=== PATIENT | male | born 1995 | race Hispanic/Latino ===

== ENCOUNTER 2022-01-29 13:35 | Emergency (ER) | payer OTHER ==
[2022-01-29 15:21] LABS: Hematocrit 44.5 % (39.6-49.0); MCV 87.4 fL (80-100); MPV 9.3 fL (7.6-11.3)
[2022-01-29 15:34] LABS: Albumin 3.7 g/dL (3.4-5.0); Bilirubin Total 0.3 mg/dL (0.2-1.0)
[2022-01-29] MEDS ORDERED: ONDANSETRON 4 MG/2 ML VIAL ONE (15:57)
[2022-01-29] MEDS ORDERED: NA CHLORIDE 0.9% 1,000 ML ONE (15:57)
[2022-01-29] MEDS ORDERED: MORPHINE 4 MG/ML SYR ONE (15:57)
[2022-01-29 16:07] LABS: Urine Blood Negative (Negative); Urine Glucose Negative (Negative); Urine Protein Negative (Negative); Urine Specific Gravity <=1.005 (1.005-1.030); Urine pH 6.5 (5.0-7.0)
[2022-01-29 16:14] LABS: Urine Bacteria <20 /HPF (<20); Urine Crystals Unidentified Few /HPF (None Seen); Urine RBC <5 /HPF (None Seen)
--- NOTE | 2022-01-29 16:29 | RAD REPORT ---
EXAM DESCRIPTION: CTAbdomen Pelvis W Contrast - 01/29/2022 4:23 pm CLINICAL HISTORY: Abdominal pain. upper abdomen pain COMPARISON: No comparisons TECHNIQUE: Biphasic CT imaging of the abdomen and pelvis was performed with 100 ml non-ionic IV cont rast. All CT scans are performed using dose optimization technique as appropriate and may include automated exposure control or mA/KV adjustment according to patient size. FINDINGS: The lung bases are clear. The liver, spleen, pancreas, adrenal glands and kidneys are within normal limits. No bowel obstruction, free air, free fluid or abscess. The appendix is normal. No evidence of signi ficant lymphadenopathy. No suspicious bony findings. IMPRESSION: No acute intra-abdominal or pelvic finding.
--- NOTE | 2022-01-29 16:52 | RAD REPORT ---
EXAM DESCRIPTION: US - Abdomen Exam Limited - 01/29/2022 4:40 pm CLINICAL HISTORY: epigastric pain, elevated liver enzymes COMPARISON: No comparisons FINDINGS: The gallbladder demonstrates no gallstones. No pericholecystic fluid or gallbladder wall t hickening. The common bile duct is normal measuring 2 mm. The liver demonstrates no findings of intrahepatic biliary dilatation. IMPRESSION: Unremarkable examination.
--- NOTE | 2022-01-29 17:18 | ER ---
Nurse's Notes [facility] Name: Mike Francis Age: 26 yrs Sex: Male : 1995 Arrival Date: 01/29/2022 Time: 13:36 Bed 9 Private MD: Diagnosis: Upper abdominal pain, unspecified Presentation: 01/29 14:03 Chief complaint: Patient states: yesterday I went to the ER in [place] for upper abd iw pain I have at night, they said I have inflammation of my liver, and they gave my fluids and morphine, they told m to come back to the ER if symptoms persist, now the nausea and light headedness is worse now, the pain isn;t as bad. Coronavirus screen: At this time, the client does not indicate any symptoms associated with coronavirus-19. Ebola Screen: Patient negative for fever greater than or equal to 101.5 degrees Fahrenheit, and additional compatible Ebola Virus Disease symptoms Patient denies exposure to infectious person. Patient denies travel to an Ebola-affected area in the 21 days before illness onset. No symptoms or risks identified at this time. Initial Sepsis Screen: Does the patient meet any 2 criteria? No. Patient's initial sepsis screen is negative. Does the patient have a suspected source of infection? No. Patient's initial sepsis screen is negative. Risk Assessment: Do you want to hurt yourself or someone else? Patient reports no desire to harm self or others. Onset of symptoms was January 27, 2022. 14:03 Method Of Arrival: Ambulatory iw 14:03 Acuity: ROSIBEL 3 iw Triage Assessment: 14:17 General: Appears in no apparent distress. comfortable, Behavior is calm, cooperative, ld1 appropriate for age. Pain: Denies pain. EENT: No signs and/or symptoms were reported regarding the EENT system. Neuro: Level of Consciousness is awake, alert, obeys commands, Oriented to person, place, time, situation, Reports dizziness, headache. Cardiovascular: Capillary refill < 3 seconds Patient's skin is warm and dry. Respiratory: Airway is patent Respiratory effort is even, unlabored. GI: Abdomen is round non-distended. : No signs and/or symptoms were reported regarding the genitourinary system. Derm: No signs and/or symptoms reported regarding the dermatologic system. Musculoskeletal: No signs and/or symptoms reported regarding the musculoskeletal system. Historical: - Allergies: 14:06 No Known Allergies; iw - Home Meds: 14:06 None [Active]; iw - PMHx: 14:06 sciatic nerve pain; iw - PSHx: 14:06 None; iw Vital Signs: 14:03 BP 129 / 81; Pulse 81; Resp 16; Temp 97.9; Pulse Ox 99% on R/A; Weight 90.72 kg; Height iw 5 ft. 7 in. (170.18 cm); Pain 3/10; 14:16 BP 129 / 81; Pulse 73; Resp 18; Temp 98.3(O); Pulse Ox 100% on R/A; Weight 90.72 kg; ld1 Height 5 ft. 7 in. (170.18 cm); Pain 0/10; 14:16 Body Mass Index 31.32 (90.72 kg, 170.18 cm) ld1 ED Course: 13:36 Patient arrived in ED. as 14:02 Ehsan Mccrary PA is PHCP. cp 14:02 Ehsan Fox MD is Attending Physician. cp 14:06 Triage completed. iw 14:16 Arm band placed on right wrist. ld1 15:05 Initial lab(s) drawn, by ak, sent to lab. Inserted saline lock: 20 gauge in right em1 antecubital area, using aseptic technique. Blood collected. 16:04 Sierra Manning, RN is Primary Nurse. iw 16:24 CT Abd/Pelvis - IV Contrast Only In Process Unspecified. EDMS 16:42 US Abdomen Limited In Process Unspecified. EDMS 17:18 Demario Vasquez MD is Referral Physician. cp Administered Medications: 16:04 Drug: NS 0.9% 1000 ml Route: IV; Rate: 1 bolus; Site: right antecubital; iw 16:04 Drug: morphine 4 mg Route: IVP; Infused Over: 4 mins; Site: right antecubital; iw 16:05 Drug: Zofran (Ondansetron) 4 mg Route: IVP; Site: right antecubital; iw Outcome: 17:18 Discharge ordered by . cp 18:46 Patient left the ED. iw Signatures: Dispatcher [employer] EDMS Lidia Tellez as Sierra Manning RN RN iw Basilio Tellez em1 Ehsan Mccrary PA PA cp Nelly Corbin, RN RN ld1
--- NOTE | 2022-01-29 17:18 | EDPHYS ---
Physician Documentation [facility] Name: Mike Francis Age: 26 yrs Sex: Male : 1995 Arrival Date: 01/29/2022 Time: 13:36 Bed 9 Private MD: ED Physician Ehsan Fox HPI: 01/29 15:00 This 26 yrs old Male presents to ER via Ambulatory with complaints of cp Epigastric Pain, Nausea. 15:00 The patient presents with abdominal pain in the epigastric area, in the upper abdomen. cp Onset: The symptoms/episode began/occurred last week. The symptoms radiate to chest. Associated signs and symptoms: Pertinent positives: nausea, Pertinent negatives: constipation, diarrhea, active vomiting. 15:00 The patient has been recently seen by a physician: in [place] ED, yesterday, with cp similar presenting complaints, and apparently given a diagnosis of liver inflammation, lab tests were done. Historical: - Allergies: 14:06 No Known Allergies; iw - Home Meds: 14:06 None [Active]; iw - PMHx: 14:06 sciatic nerve pain; iw - PSHx: 14:06 None; iw ROS: 15:05 Constitutional: Negative for body aches, chills, fever. cp 15:05 Eyes: Negative for injury, pain, redness, and discharge. cp 15:05 ENT: Negative for drainage from ear(s), ear pain, sore throat, difficulty swallowing, difficulty handling secretions. 15:05 Cardiovascular: Negative for edema, palpitations. 15:05 Respiratory: Negative for cough, shortness of breath, wheezing. 15:05 Abdomen/GI: Positive for abdominal pain, nausea, Negative for diarrhea, constipation, black/tarry stool, rectal bleeding, active vomiting. 15:05 Back: Negative for injury or acute deformity, pain with movement. 15:05 Neuro: Negative for altered mental status, dizziness, headache, weakness. 15:05 All other systems are negative. Exam: 15:10 Constitutional: The patient appears in no acute distress, alert, awake, non-toxic, well cp developed, well nourished, uncomfortable. 15:10 Head/Face: Normocephalic, atraumatic. cp 15:10 Eyes: Periorbital structures: appear normal, Conjunctiva: normal, no exudate, no injection, Sclera: no appreciated abnormality, Lids and lashes: appear normal, bilaterally. 15:10 ENT: External ear(s): are unremarkable, Nose: is normal, Mouth: Lips: moist, Oral mucosa: pink and intact, moist, Posterior pharynx: Airway: no evidence of obstruction, patent. 15:10 Neck: ROM/movement: is normal, is supple, without pain, no range of motions limitations. 15:10 Chest/axilla: Inspection: normal. 15:10 Cardiovascular: Rate: normal, Rhythm: regular. 15:10 Respiratory: the patient does not display signs of respiratory distress, Respirations: normal, no use of accessory muscles, no retractions, labored breathing, is not present, Breath sounds: are clear throughout, no decreased breath sounds, no stridor, no wheezing. 15:10 Abdomen/GI: Inspection: abdomen appears normal, Bowel sounds: active, all quadrants, Palpation: soft, in all quadrants, moderate abdominal tenderness, in the epigastric area, rebound tenderness, is not appreciated, voluntary guarding, is elicited in the epigastric area. 15:10 Back: CVA tenderness, is absent. 15:10 Neuro: Orientation: to person, place \T\ time. Mentation: is normal. Vital Signs: 14:03 BP 129 / 81; Pulse 81; Resp 16; Temp 97.9; Pulse Ox 99% on R/A; Weight 90.72 kg; Height iw 5 ft. 7 in. (170.18 cm); Pain 3/10; 14:16 BP 129 / 81; Pulse 73; Resp 18; Temp 98.3(O); Pulse Ox 100% on R/A; Weight 90.72 kg; ld1 Height 5 ft. 7 in. (170.18 cm); Pain 0/10; 14:16 Body Mass Index 31.32 (90.72 kg, 170.18 cm) ld1 MDM: 14:22 Patient medically screened. cp 16:00 Differential diagnosis: cholecystitis, Cholelithiasis, gastritis, pancreatitis, Peptic cp Ulcer Disease, Perf. Duodenal Ulcer, Perf. Gastric Ulcer, Pyelonephritis, Ureterolithiasis, urinary tract infection. 17:18 Data reviewed: vital signs, nurses notes, lab test result(s), radiologic studies, CT cp scan, ultrasound. 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 Response to treatment: the patient's symptoms have markedly improved after treatment, and as a result, I will discharge patient. Special discussion: Based on the patient's Hx, exam, and Dx evaluation, there is no indication for emergent surgery or inpatient Tx. It is understood by the patient/guardian that if the Sx's persist or worsen they need to return immediately for re-evaluation. 01/29 14:42 Order name: CBC with Diff; Complete Time: 15:43 cp 01/29 14:42 Order name: CMP; Complete Time: 15:43 cp 01/29 14:42 Order name: Lipase; Complete Time: 15:43 cp 01/29 14:42 Order name: Urine Microscopic Only; Complete Time: 16:57 cp 01/29 15:46 Order name: US Abdomen Limited; Complete Time: 16:57 cp 01/29 16:57 Interpretation: Report reviewed. cp 01/29 16:07 Order name: Urine Dipstick-Ancillary; Complete Time: 16:57 EDMS 01/29 14:42 Order name: IV Saline Lock; Complete Time: 15:44 cp 01/29 14:42 Order name: Labs collected and sent; Complete Time: 15:44 cp 01/29 14:42 Order name: Urine Dipstick-Ancillary (obtain specimen); Complete Time: 16:05 cp 01/29 15:46 Order name: CT Abd/Pelvis - IV Contrast Only; Complete Time: 16:57 cp 01/29 16:57 Interpretation: Report reviewed. cp 01/29 17:02 Order name: PO challenge; Complete Time: 18:11 cp Administered Medications: 16:04 Drug: NS 0.9% 1000 ml Route: IV; Rate: 1 bolus; Site: right antecubital; iw 16:04 Drug: morphine 4 mg Route: IVP; Infused Over: 4 mins; Site: right antecubital; iw 16:05 Drug: Zofran (Ondansetron) 4 mg Route: IVP; Site: right antecubital; iw Disposition Summary: 01/29/22 17:18 Discharge Ordered Location: Home cp Problem: new cp Symptoms: have improved cp Condition: Stable cp Diagnosis - Upper abdominal pain, unspecified cp Followup: cp - With: Demario Vasquez MD - When: 2 - 3 days - Reason: Recheck today's complaints Discharge Instructions: - Discharge Summary Sheet cp - Abdominal Pain, Adult cp - Gastritis, Adult cp - Form - Excuse from Work, School, or Physical Activity cp Forms: - Medication Reconciliation Form cp - Thank You Letter cp - Antibiotic Education cp - Prescription Opioid Use cp - Work release form iw Prescriptions: - Protonix 40 mg Oral Tablet - take 1 tablet by ORAL route once daily; 30 tablet; Refills: 0, Product cp Selection Permitted - Zofran 4 mg Oral Tablet - take 1 tablet by ORAL route every 12 hours As needed; 20 tablet; Refills: 0, cp Product Selection Permitted Addendum: 02/01/2022 08:01 Co-signature as Attending Physician, Ehsan Fox MD I agree with the assessment and c escobar plan of care. Signatures: Dispatcher [employer] Ehsan Browne MD MD cha Williams, Irene, RN RN iw Ehsan Mccrary, PA PA cp
[2022-01-29 18:51] VITALS: BP 129/81
[2022-01-29 18:53] VITALS: TEMP 98.3; O2SAT 100
== END 2022-01-29 18:46 | disposition home or self-care (01) ==
LOC: ER 13:35
DX: R10.10 Upper abdominal pain, unspecified (principal); R11.0 Nausea
CPT/HCPCS: 85025; 36415; 83690; 80053; 74177; 76705; 96375; 96374; 99284; Q9967; J7030; J2405; 81003; 81015